=== PATIENT | female | born 1985 | race Caucasian/White ===

== ENCOUNTER 2017-12-09 19:13 | Emergency (ER) | payer BC ==
[2017-12-09 19:23] VITALS: PULSE 90; TEMP 98.4; BMI 32.0
[2017-12-09] MEDS ORDERED: PANTOPRAZOLE SODIUM 40 MG VIAL IVPB ONE (20:26)
[2017-12-09] MEDS ORDERED: KETOROLAC TROMETHAMINE 30 MG/1 ML VIAL IVPUSH ONE (20:26)
--- NOTE | 2017-12-09 20:26 | PDOC ---
History of Present Illness - General History Source: Patient Exam Limitations: No Limitations - History of Present Illness Initial Comments: 12/09/17 20:41 The patient is a 32 year old female, with a significant past medical history of PCOS and borderline HTN, who presents to the emergency department with, 2 days of worsening midsternal chest pain. She describes her pain as if something is there. As per patient, she ate pizza prior to the onset of her symptoms. Secondary to her symptoms, she reports difficulty swallowing, eating, and drinking due to the pain. She reports eating a small amount of salad today which she did not regurgitate. She reports taking Advil without relief. She denies recent fevers, chills, headache or dizziness. She denies recent nausea, vomit, diarrhea or constipation. She denies recent dysuria, frequency, urgency or hematuria. She denies recent shortness of breath. Allergies: NKA Past surgical history: None reported. Social history: Nonsmoker. Denies EtOH use and recreational drug use. <Jorge Mann - Last Filed: 12/09/17 20:41> <Bibi Goodman - Last Filed: 12/10/17 02:36> - General Chief Complaint: Dysphagia Stated Complaint: DIFFICULTY SWALLOWING SINCE SUNDAY Time Seen by Provider: 12/09/17 19:17 Past History <Jorge Mann - Last Filed: 12/09/17 20:41> - Past Medical History COPD: No HTN: Yes - Suicide/Smoking/Psychosocial Hx Smoking History: Never smoked Have you smoked in the past 12 months: No Information on smoking cessation initiated: No Hx Alcohol Use: No Drug/Substance Use Hx: No Substance Use Type: None <Bibi Goodman - Last Filed: 12/10/17 02:36> - Past Medical History Allergies/Adverse Reactions: Allergies Allergy/AdvReac Type Severity Reaction Status Date / Time No Known Allergies Allergy Verified 12/09/17 19:15 Home Medications: Ambulatory Orders Norethindrone-E.estradiol-Iron [Junel Fe 24 Tablet] 1 each PO DAILY 12/09/17 Pantoprazole Sodium [Protonix -] 40 mg PO DAILY #10 tablet.ec 12/09/17 Sucralfate Oral Suspension [Carafate *Oral Susp*] 1 gm PO QID #120 ml 12/09/17 Review of Systems - Review of Systems Able to Perform ROS?: Yes Comments:: 12/09/17 20:42 CONSTITUTIONAL: Absent: fever, no chills, no fatigue EYES: Absent: visual changes ENT: Absent: ear pain, no sore throat CARDIOVASCULAR: Present: Midsternal Chest Pain. Absent: no palpitations RESPIRATORY: Absent: cough, no SOB GI: Absent: abdominal pain, no nausea, no vomiting, no constipation, no diarrhea GENITOURINARY: Absent: dysuria, no frequency, no hematuria MUSKULOSKELETAL: Absent: back pain, no arthralgia, no myalgia SKIN: Absent: rash NEURO: Absent: headache All Other Systems: Reviewed and Negative <Jorge Mann - Last Filed: 12/09/17 20:41> *Physical Exam - Vital Signs Last Vital Signs Temp Pulse Resp BP Pulse Ox 98.4 F 90 18 157/108 100 12/09/17 19:18 12/09/17 19:18 12/09/17 19:18 12/09/17 19:18 12/09/17 19:18 - Physical Exam Comments: 12/09/17 20:42 GENERAL: The patient is awake, alert, and fully oriented, in no acute distress. HEAD: Normal with no signs of trauma. EYES: Pupils equal, round and reactive to light, extraocular movements intact, sclera anicteric, conjunctiva clear with no pallor. ENT: Ears normal, nares patent, oropharynx clear without exudates. Moist mucous membranes. NECK: Normal range of motion, supple without lymphadenopathy, JVD, or masses. LUNGS: Breath sounds equal, clear to auscultation bilaterally. No wheeze/ crackles. (+)HEART: Mild midsternal tenderness. Regular rate and rhythm, normal S1 and S2 without murmur or rub. (+)ABDOMEN: Minimal epigastric tenderness. Soft/nondistended. BS wnl. No guarding or rebound. No palpable masses. No hepatosplenomegaly. EXTREMITIES: Normal range of motion, no edema. No clubbing or cyanosis. No cords, erythema, or tenderness. NEUROLOGICAL: Cranial nerves II through XII grossly intact. Normal speech, normal gait. PSYCH: Normal mood, normal affect. SKIN: Warm, Dry, normal turgor, no rashes or lesions noted. <Jorge Mann - Last Filed: 12/09/17 20:41> - Vital Signs Last Vital Signs Temp Pulse Resp BP Pulse Ox 98.4 F 90 18 157/108 100 12/09/17 19:18 12/09/17 19:18 12/09/17 19:18 12/09/17 19:18 12/09/17 19:18 <Bibi Goodman - Last Filed: 12/10/17 02:36> ED Treatment Course - LABORATORY CBC & Chemistry Diagram: 12/09/17 20:25 12/09/17 20:25 - ADDITIONAL ORDERS Additional order review: Laboratory Results 12/09/17 20:30 Urine Color Yellow Urine Appearance Clear Urine pH 6.0 Ur Specific [place] 1.025 Urine Protein 1+ H Urine Glucose (UA) Negative Urine Ketones Trace Urine Blood Negative Urine Nitrite Negative Urine Bilirubin 1+ H Urine Urobilinogen 0.2 Ur Leukocyte Esterase Negative Urine HCG, Qual Negative - Medications Given in the ED: ED Medications Discontinued Medications Generic Name Dose Route Start Last Admin Trade Name Joyce PRN Reason Stop Dose Admin Ketorolac Tromethamine 30 mg 12/09/17 20:26 12/09/17 20:37 Toradol Injection - IVPUSH 12/09/17 20:27 30 mg ONCE ONE Administration <Jorge Mann - Last Filed: 12/09/17 20:41> - LABORATORY CBC & Chemistry Diagram: 12/09/17 20:25 12/09/17 20:25 <Bibi Goodman - Last Filed: 12/10/17 02:36> Medical Decision Making - Medical Decision Making Laboratory evaluation essentially normal except for mild elevation of WBC count. CXR PA & Lat shows no evidence of acute process Case discussed with Dr Yao Faremr. The patient can either be admitted, if pain and/or dehydration is severe, for upper endoscopy tomorrow or the patient can be discharged and be seen tomorrow by Dr Farmer in the office. Upper endoscopy would be planned urgently. Discharge medications suggested are PPI and sucralfate suspension. Since there is no absolute reason for admission(i.e, severe dehydration not present), option left open to patient. She much prefers to be discharged since her pain has improved since admission and she has 2 young children at home. 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 <Jorge Mann - Last Filed: 12/09/17 20:41> <Bibi Goodman - Last Filed: 12/10/17 02:36> Diagnosis at time of Disposition: Sensation of foreign body in esophagus - Discharge Dispostion Disposition: HOME Condition at time of disposition: Stable - Prescriptions Prescriptions: Pantoprazole Sodium [Protonix -] 40 mg PO DAILY #10 tablet.ec Sucralfate Oral Suspension [Carafate *Oral Susp*] 1 gm PO QID #120 ml - Referrals Referrals: Yao Farmer MD [Staff Physician] - 24 hours - Patient Instructions Printed Discharge Instructions: DI for Esophageal Dysphagia Additional Instructions: soft diet call Dr Farmer office in AM to arrange followup tomorrow protonix 40mg daily carafate suspension 2 teaspoons 4 times a day followup with your medical doctor within 2-3 days for blood pressure evaluation - Post Discharge Activity Forms/Work/School Notes: Back to Work
[2017-12-09] MEDS ORDERED: KETOROLAC TROMETHAMINE 30 MG/1 ML VIAL ONE (20:31)
[2017-12-09 20:38] LABS: URINE APPEARANCE Clear; URINE BILIRUBIN 1+ (NEGATIVE); URINE BLOOD Negative (NEGATIVE); URINE GLUCOSE (UA) Negative (NEGATIVE); URINE KETONE Trace (NEGATIVE); URINE LEUK ESTERASE Negative (NEGATIVE); URINE NITRITE Negative (NEGATIVE); URINE PROTEIN 1+ (NEGATIVE); URINE UROBILINOGEN 0.2 (0.2-1.0)
[2017-12-09 20:39] LABS: URINE COLOR YELLOW
[2017-12-09 20:40] LABS: HCG,QUALITATIVE URINE NEGATIVE
[2017-12-09 20:44] LABS: BASO % 0.5 % (0-2.0); EOS % 1.6 % (0-4.5); HEMATOCRIT 42.3 % (32.4-45.2); LYMPH % 20.3 % (8-40); MCH 27.1 pg (25.7-33.7); MCHC 33.1 g/dl (32.0-36.0); MEAN CELL VOLUME 81.8 fl (80-96); MEAN PLT VOLUME 8.2 fl (7.5-11.1); MONO % 2.9 % (3.8-10.2); NEUT % 74.7 % (42.8-82.8); PLATELET COUNT 388 K/MM3 (134-434); RBC 5.18 M/mm3 (3.60-5.2); RDW 14.9 % (11.6-15.6); WHITE BLOOD COUNT 12.6 K/mm3 (4.0-10.8)
[2017-12-09 20:55] LABS: ALBUMIN 4.1 g/dl (3.5-5.0); ALK PHOS 75 U/L (32-92); ANION GAP 10 (8-16); BLOOD UREA NITROGEN 13 mg/dl (7-18); CALCIUM 9.6 mg/dl (8.4-10.2); CHLORIDE 101 mmol/L (98-107); CO2 26 mmol/L (22-28); GLUCOSE,RANDOM 96 mg/dl (74-106); POTASSIUM 3.6 mmol/L (3.5-5.1); SGOT/AST 24 U/L (10-42); SGPT/ALT 38 U/L (10-40); SODIUM 137 mmol/L (136-145); TOT PROT 8.4 g/dl (6.4-8.3)
[2017-12-09 20:57] LABS: URINE RBC 0-3 /hpf (0-3); URINE WBC 0-3 (0-5)
[2017-12-09 20:58] LABS: URINE MUCUS 2+
[2017-12-09 21:10] LABS: CREATININE < 0.8 mg/dl (0.6-1.3)
[2017-12-09 21:11] LABS: BILIRUBIN,TOTAL < 0.5 mg/dl (0.2-1.0)
[2017-12-09 22:33] LABS: INR 1.03 (0.82-1.09); PROTHROMBIN TIME (PATIENT) 11.5 SEC (10.2-13.0)
[2017-12-09] MEDS ORDERED: SUCRALFATE 1 GM/10 ML UNIT DOSE CUPS ONE (22:39)
[2017-12-09] MEDS ORDERED: SUCRALFATE 1 GM/10 ML UNIT DOSE CUPS PO ONE (22:40)
[2017-12-09 22:54] VITALS: BP 153/114
[2017-12-11 08:06] LABS: HBsAG SCREEN Negative (Negative); HEPATITIS B CORE ANTIBODY Negative (Negative)
== END 2017-12-09 23:46 | disposition home or self-care (01) ==
LOC: FER 19:13
PROC: 3E0333Z Introduction of Anti-inflammatory into Peripheral Vein, Percutaneous Approach (ICD-10-PCS; principal; 2017-12-09)
PROC: 3E033GC Introduction of Other Therapeutic Substance into Peripheral Vein, Percutaneous Approach (ICD-10-PCS; 2017-12-09)
DX: R09.89 Other specified symptoms and signs involving the circulatory and respiratory systems (principal)
CPT/HCPCS: 36415; 71046-TC-FY; 80053; 81003; 81015; 84703; 85025; 85610; 86704; 87340; 87389; 99281-25

== ENCOUNTER 2021-01-09 18:57 | Inpatient (IN) | payer BC ==
[2021-01-09 20:20] VITALS: BMI 34.9
[2021-01-09] MEDS ORDERED: DINOPROSTONE 10 MG VAGINAL SUPPOSITORY VG ONE ×2 (20:20→21:20)
[2021-01-09 21:21] LABS: BASO % 0.4 % (0-2.0); EOS % 2.8 % (0-4.5); HEMATOCRIT 32.5 % (32.4-45.2); LYMPH % 23.8 % (8-40); MCH 27.8 pg (25.7-33.7); MCHC 33.9 g/dl (32.0-36.0); MEAN CELL VOLUME 82.1 fl (80-96); MEAN PLT VOLUME 8.6 fl (7.5-11.1); MONO % 6.7 % (3.8-10.2); NEUT % 66.3 % (42.8-82.8); PLATELET COUNT 301 K/MM3 (134-434); RBC 3.96 M/mm3 (3.60-5.2); WHITE BLOOD COUNT 8.3 K/mm3 (4.0-10.0)
[2021-01-09] MEDS: DEXTROSE 5%-LACTATED RINGERS 1,000 ML IV SCH (21:30)
[2021-01-09 21:41] LABS: CALCIUM 8.8 mg/dL (8.5-10.1)
[2021-01-09 21:42] LABS: BLOOD UREA NITROGEN 15.7 mg/dL (7-18)
[2021-01-09 21:43] LABS: INR 0.95 (0.83-1.09); PROTHROMBIN TIME (PATIENT) 11.5 SEC (9.7-13.0)
[2021-01-09 21:45] LABS: CREATININE 0.5 mg/dL (0.55-1.3)
[2021-01-09 22:40] LABS: HIV INTERPRETATION NEGATIVE (NEGATIVE)
[2021-01-10] MEDS ORDERED: OXYTOCIN 30 UNITS in 0.9% NS 30 UNIT/500 ML INFUS.BAG IVPB SCH (09:30)
[2021-01-10] MEDS ORDERED: OXYTOCIN 30 UNITS in 0.9% NS 30 UNIT/500 ML INFUS.BAG IVPB ONE (09:44)
[2021-01-10] MEDS ORDERED: BUTORPHANOL TARTRATE 2 MG/ML VIAL ONE (14:26)
[2021-01-10] MEDS ORDERED: PROMETHAZINE HCL 25 MG/1 ML VIAL ONE (14:26)
[2021-01-10] MEDS ORDERED: PROMETHAZINE HCL 25 MG/1 ML VIAL IVPB ONE (14:28)
[2021-01-10] MEDS ORDERED: BUTORPHANOL TARTRATE 2 MG/ML VIAL IVPB ONE (14:28)
[2021-01-10] MEDS ORDERED: PCA PUMP NR ONE ×2 (17:53→23:58)
[2021-01-10] MEDS ORDERED: FENTANYL/BUPIVACAINE/NS/PF - PCEA - 50 ML DISP.SYRIN EP ONE (17:53)
[2021-01-10] MEDS ORDERED: BUPIVACAINE HCL/PF 0.25% (2.5MG/ML) 10 ML VIAL ONE (17:54)
[2021-01-10] MEDS: DEXTROSE 5%-LACTATED RINGERS 1,000 ML IV SCH (18:00)
[2021-01-10] MEDS ORDERED: NALOXONE HCL 0.4 MG/ML VIAL IVPUSH PRN (18:17)
[2021-01-10] MEDS ORDERED: FENTANYL/BUPIVACAINE/NS/PF - PCEA - 50 ML DISP.SYRIN EP SCH (18:30)
[2021-01-10] MEDS ORDERED: OXYTOCIN 20 UNITS in 0.9% NS 20 UNIT/1,000 ML INFUS.BAG IV ONE (21:30)
[2021-01-10] MEDS ORDERED: LIDOCAINE HCL 1% PRESERVATIVE FREE - 30ML VIAL ONE (21:31)
[2021-01-10] MEDS ORDERED: BISACODYL 10 MG SUPP.RECT RC PRN (22:15)
[2021-01-10] MEDS ORDERED: BENZOCAINE 28 GM HEMORRHOIDAL OINTMENT TP PRN (22:15)
[2021-01-10] MEDS ORDERED: OXYTOCIN 20 UNITS in 0.9% NS 20 UNIT/1,000 ML INFUS.BAG IV SCH (22:15)
[2021-01-10] MEDS ORDERED: METHYLERGONOVINE MALEATE 0.2 MG/1 ML AMP IM PRN (22:15)
[2021-01-10] MEDS ORDERED: WITCH HAZEL 50% (TUCKS) 40 PAD/JAR PAD TP PRN (22:15)
[2021-01-10] MEDS ORDERED: BENZOCAINE 20% 57 GM BOTTLE TP PRN (22:15)
[2021-01-11] MEDS: ACETAMINOPHEN 325 MG TABLET (FP) PO PRN ×5 (01:12→23:49)
[2021-01-11] MEDS: IBUPROFEN 600 MG TABLET (FP) PO PRN ×5 (01:12→23:49)
[2021-01-11 08:47] LABS: BASO % 0.3 % (0-2.0); EOS % 1.3 % (0-4.5); HEMATOCRIT 29.5 % (32.4-45.2); HEMOGLOBIN 9.9 GM/dL (10.7-15.3); LYMPH % 19.9 % (8-40); MCH 27.9 pg (25.7-33.7); MCHC 33.7 g/dl (32.0-36.0); MEAN PLT VOLUME 8.8 fl (7.5-11.1); MONO % 3.7 % (3.8-10.2); NEUT % 74.8 % (42.8-82.8); PLATELET COUNT 274 K/MM3 (134-434); RBC 3.56 M/mm3 (3.60-5.2); RDW 16.3 % (11.6-15.6); WHITE BLOOD COUNT 10.4 K/mm3 (4.0-10.0)
[2021-01-11] MEDS: PRENATAL VITAMINS W/ FOLIC ACID TABLET (FP) PO SCH (10:01)
[2021-01-11] MEDS: FERROUS SO4 325 MG TABLET (FP) PO SCH (21:40)
[2021-01-11] MEDS ORDERED: SENNOSIDES/DOCUSATE COMBO (SENNA PLUS) TABLET (UD) PO PRN (22:00)
[2021-01-12 05:59] VITALS: TEMP 97.4
[2021-01-12] MEDS: IBUPROFEN 600 MG TABLET (FP) PO PRN (07:40)
[2021-01-12] MEDS: ACETAMINOPHEN 325 MG TABLET (FP) PO PRN (07:41)
[2021-01-12] MEDS: PRENATAL VITAMINS W/ FOLIC ACID TABLET (FP) PO SCH (09:33)
[2021-01-12] MEDS: FERROUS SO4 325 MG TABLET (FP) PO SCH (09:33)
[2021-01-12 10:06] VITALS: BP 131/88; PULSE 89
== END 2021-01-12 12:25 | disposition home or self-care (01) | DRG 807 ==
LOC: JLDR 18:57 → J3W 01-11 00:38
PROVIDERS: ADMIT Obstetrics & Gynecology; ATTEND Obstetrics & Gynecology
PROC: 3E0P7VZ Introduction of Hormone into Female Reproductive, Via Natural or Artificial Opening (ICD-10-PCS; 2021-01-09)
PROC: 10E0XZZ Delivery of Products of Conception, External Approach (ICD-10-PCS; principal; 2021-01-10)
PROC: 3E033VJ Introduction of Other Hormone into Peripheral Vein, Percutaneous Approach (ICD-10-PCS; 2021-01-10)
PROC: 10907ZC Drainage of Amniotic Fluid, Therapeutic from Products of Conception, Via Natural or Artificial Opening (ICD-10-PCS; 2021-01-10)
DX: O16.3 Unspecified maternal hypertension, third trimester (principal); Z37.0 Single live birth; O99.214 Obesity complicating childbirth; E66.9 Obesity, unspecified; O90.81 Anemia of the puerperium; D64.9 Anemia, unspecified; Z86.16 Personal history of COVID-19; Z3A.38 38 weeks gestation of pregnancy
CPT/HCPCS: 36415; 59409; 80048; 85025; 85610; 85730; 86780; 86850; 86900; 86901; 87389; C9803; U0003; U0005

== ENCOUNTER 2024-07-07 05:17 | Day surgery (SDC) | payer BC ==
[2024-07-04 13:26] VITALS: BMI 34.5
[2024-07-07] MEDS ORDERED: MIDAZOLAM HCL 2 MG/2 ML SINGLE DOSE VIAL ONE (10:18)
[2024-07-07] MEDS ORDERED: PROPOFOL 20 ML ONE ×3 (10:18→11:37)
[2024-07-07] MEDS ORDERED: ROCURONIUM BROMIDE 50 MG/5 ML SYRINGE ONE (10:19)
[2024-07-07] MEDS: ceFAZolin SODIUM 1 GM VIAL IVPB ONE (10:41)
[2024-07-07] MEDS ORDERED: ceFAZolin SODIUM 1 GM VIAL ONE ×2 (10:46→10:47)
[2024-07-07] MEDS: BUPIVACAINE HCL/PF 0.5% (5MG/ML) 10 ML VIAL IJ ONE ×2 (10:55)
[2024-07-07] MEDS ORDERED: KETOROLAC TROMETHAMINE 30 MG/1 ML VIAL ONE (12:19)
[2024-07-07] MEDS ORDERED: ONDANSETRON 4 MG/2 ML VIAL ONE (12:19)
[2024-07-07] MEDS ORDERED: DEXAMETHASONE SOD PHOSPHATE 4 MG/1 ML VIAL ONE (12:19)
[2024-07-07] MEDS ORDERED: SUGAMMADEX SODIUM 200 MG/2 ML VIAL ONE (12:23)
[2024-07-07] MEDS ORDERED: ONDANSETRON 4 MG/2 ML VIAL IVPUSH PRN (12:49)
[2024-07-07] MEDS ORDERED: oxyCODONE HCL 5 MG TABLET PO PRN (12:49)
[2024-07-07] MEDS ORDERED: LACTATED RINGERS SOLUTION 1,000 ML IV SCH (13:00)
[2024-07-07 14:54] VITALS: RESP 16; TEMP 97.5
[2024-07-07 17:16] VITALS: BP 118/70; PULSE 80
== END 2024-07-07 16:40 | disposition home or self-care (01) ==
LOC: JASU-SURG 05:17
PROVIDERS: ATTEND Obstetrics & Gynecology
PROC: 0UT74ZZ Resection of Bilateral Fallopian Tubes, Percutaneous Endoscopic Approach (ICD-10-PCS; 2024-07-07)
PROC: 0UDB7ZX Extraction of Endometrium, Via Natural or Artificial Opening, Diagnostic (ICD-10-PCS; 2024-07-07)
PROC: 0UB14ZZ Excision of Left Ovary, Percutaneous Endoscopic Approach (ICD-10-PCS; principal; 2024-07-07 10:00)
DX: N92.0 Excessive and frequent menstruation with regular cycle (principal); D27.1 Benign neoplasm of left ovary; Z30.2 Encounter for sterilization
CPT/HCPCS: 88104; 88108; 88305-TC; 94760

== ENCOUNTER 2025-04-19 15:44 | Emergency (ER) | payer BC ==
[2025-04-19 16:09] VITALS: BP 135/87; PULSE 90; RESP 16; TEMP 98.5; BMI 34.4
[2025-04-19] MEDS ORDERED: ACETAMINOPHEN INJECTION 100 ML ONE (17:14)
[2025-04-19] MEDS ORDERED: CLINDAMYCIN 600MG PREMIX IVPB 600 MG/50 ML BAG IVPB ONE ×2 (17:14→21:52)
[2025-04-19] MEDS: CLINDAMYCIN 600MG PREMIX IVPB 600 MG/50 ML BAG IVPB ONE (17:15)
[2025-04-19] MEDS: ACETAMINOPHEN 1000 MG/100 ML BAG IVPB ONE (17:34)
[2025-04-19 17:38] LABS: ABSOLUTE IMMATURE GRANULOCYTES 0.01 x10^3/uL (0.0-0.031); BASOPHILS # 0.09 x10^3/uL (0.01-0.08); EOSINOPHIL % 4.1 % (0.7-5.8); EOSINOPHILS # 0.33 x10^3/uL (0.04-0.36); MCHC 26.6 g/dl (32.2-35.5); MEAN CELL VOLUME 61.8 fl (79.4-94.8); MEAN PLT VOLUME 9.8 fl (9.4-12.3); MONOCYTE # 0.34 x10^3/uL (0.24-0.86); MONOCYTE % 4.3 % (4.7-12.5); RDW 19.3 % (12.1-16.8)
[2025-04-19 17:47] LABS: ALK PHOS 66.0 U/L (45-117); CO2 27.0 mmol/L (21-32); CREATININE 0.6 mg/dl (0.6-1.3); GLUCOSE,RANDOM 110.0 mg/dl (74-106); SGOT/AST 15.0 U/L (15-37); SGPT/ALT 19.0 U/L (7-52); TOT PROT 6.7 g/dl (6.4-8.2)
[2025-04-19 18:40] LABS: ERYTHROCYTE SEDIMENTATION RATE 5 mm/hr (0-20)
[2025-04-19] MEDS ORDERED: METOCLOPRAMIDE HCL INJECTION 10 MG/2 ML VIAL ONE (20:11)
[2025-04-19] MEDS ORDERED: MAGNESIUM SULFATE IN WATER 2 GM/50 ML IVPB IVPB ONE (20:11)
[2025-04-19] MEDS: MAGNESIUM SULF 50% (8.12 MEQ/2 ML-1 GM VIAL) IVPB ONE (20:15)
[2025-04-19] MEDS: METOCLOPRAMIDE HCL INJECTION 10 MG/2 ML VIAL IVPB ONE (20:15)
[2025-04-19 21:24] LABS: HCV DIAGNOSTIC IN-HOUSE W/RFLX NON-REACTIVE (NONREACTIVE); HIV INTERPRETATION NEGATIVE (NEGATIVE)
[2025-04-19] MEDS: AMPICILLIN NA/SULBACTAM NA 1.5 GM in SODIUM CHLORIDE 100 ML IVPB ONE (21:51)
[2025-04-19] MEDS: CLINDAMYCIN IVPB 300 MG in DEXTROSE 5%-WATER - 48 ML IVPB ONE (22:04)
== END 2025-04-19 22:36 | disposition short-term general hospital (02) ==
LOC: FER 15:44
PROC: 3E03329 Introduction of Other Anti-infective into Peripheral Vein, Percutaneous Approach (ICD-10-PCS; principal; 2025-04-19)
PROC: 3E03329 Introduction of Other Anti-infective into Peripheral Vein, Percutaneous Approach (ICD-10-PCS; 2025-04-19)
PROC: 3E033GC Introduction of Other Therapeutic Substance into Peripheral Vein, Percutaneous Approach (ICD-10-PCS; 2025-04-19)
PROC: 3E033GC Introduction of Other Therapeutic Substance into Peripheral Vein, Percutaneous Approach (ICD-10-PCS; 2025-04-19)
PROC: 3E033NZ Introduction of Analgesics, Hypnotics, Sedatives into Peripheral Vein, Percutaneous Approach (ICD-10-PCS; 2025-04-19)
DX: D64.9 Anemia, unspecified (principal); R51.9 Headache, unspecified; R22.0 Localized swelling, mass and lump, head; R53.83 Other fatigue; R59.9 Enlarged lymph nodes, unspecified; H93.8X1 Other specified disorders of right ear
CPT/HCPCS: 36415; 70450-TC; 70481-TC; 80053; 81025; 85025; 85651; 86140; 86803; 87389; 99285-25; Q9967